=== PATIENT | female | born 1970 | race African-American/Black ===

== ENCOUNTER 2017-05-28 15:19 | Emergency (ER) | payer MEDICAID ==
[~2017-05-28] VITALS: Ht 165.1 cm; Wt 84.0 kg
[2017-05-28] MEDS ORDERED: HYDR25TA PO (15:35)
[2017-05-29] MEDS ORDERED: CEFTRIAXONE SODIUM 250 MG/VIAL IM ONE
[2017-05-29] MEDS ORDERED: AZITHROMYCIN 500 MG TABLET PO ONE
[2017-05-29 00:26] LABS: BASOPHILS % 0.7 % (0.0-2.0); EOSINOPHILS % 1.6 % (0.0-5.0); HEMATOCRIT. 37.2 % (36.0-48.0); HEMOGLOBIN. 12.3 g/dL (12.0-16.0); MEAN CORPUSCULAR HEMOGLOBIN 27.6 pg (28.0-32.0); MEAN CORPUSCULAR VOLUME 83.7 fL (81.0-99.0); MEAN PLATELET VOLUME 8.6 fl (7.4-10.4); MONOCYTES % 7.2 % (2.0-8.0); NEUTROPHILS % 69.5 % (40.0-76.0); PLATELET 246 x1000/uL (130-400); RED BLOOD CELL COUNT 4.45 mill/uL (4.2-5.4); RED CELL DISTRIBUTION WIDTH 16.1 % (11.6-14.6)
[2017-05-29 00:32] LABS: PROTHROMBIN TIME 10.3 sec (9.4-11.6)
[2017-05-29] MEDS ORDERED: KETOROLAC 30MG/ML VIAL IM ONE (01:15)
[2017-05-29 01:30] LABS: CLARITY URINE CLOUDY (CLEAR); COLOR URINE YELLOW (YELLOW); GLUCOSE URINE NEGATIVE (NEGATIVE); KETONES URINE NEGATIVE (NEGATIVE); LEUKOCYTE ESTERASE URINE 2+ (NEGATIVE); NITRITE URINE NEGATIVE (NEGATIVE); OCCULT BLOOD URINE 1+ (NEGATIVE); PH URINE 5.5 (4.5-8.0); PROTEIN URINE TRACE (NEGATIVE); SPECIFIC GRAVITY URINE 1.026 (1.005-1.030); UROBILINOGEN URINE 0.2 E.U./dL (0.2-1.0)
[2017-05-29 01:33] LABS: UCG SCREEN NEGATIVE
[2017-05-29] MEDS ORDERED: LIDOCAINE HCL 1% 20ML VIAL (Pyxis) INJ INFIL ONE (01:45)
[2017-05-29 04:00] VITALS: BP 113/68
[2017-05-31 04:17] LABS: CHLAMYDIA TRACHOMATIS NAA Negative (Negative); NEISSERIA GONORRHOEAE NAA Negative (Negative)
== END 2017-05-29 04:15 | disposition home or self-care (01) ==
LOC: ER 21:50
DX: T74.21XA Adult sexual abuse, confirmed, initial encounter (principal); N39.0 Urinary tract infection, site not specified; I10 Essential (primary) hypertension; K50.90 Crohn's disease, unspecified, without complications; F17.200 Nicotine dependence, unspecified, uncomplicated
CPT/HCPCS: 36415; 81001; 81025; 85025; 85610; 87491; 87591; 96372; 99284; J0696; J1885; J3490

== ENCOUNTER 2020-11-11 00:30 | Emergency (ER) | payer MEDICAID, OTHER ==
[~2020-11-11] VITALS: Ht 172.7 cm; Wt 118.0 kg
[~2020-11-11 00:30] MED LIST: HYDR25TA PO
[2020-11-11] MEDS ORDERED: ACETAMINOPHEN 325MG TABLET PO ONE (02:45)
[2020-11-11] MEDS ORDERED: KETOROLAC 30MG/ML VIAL IM ONE (04:45)
[2020-11-11] MEDS ORDERED: IBUP-2029 MT (11:05)
[2020-11-11 12:30] VITALS: BP 151/99
== END 2020-11-11 12:47 | disposition home or self-care (01) ==
LOC: ER 00:30
DX: R51.9 Headache, unspecified (principal); M54.2 Cervicalgia; M54.89 Other dorsalgia; G89.11 Acute pain due to trauma; W18.2XXA Fall in (into) shower or empty bathtub, initial encounter; Y93.E1 Activity, personal bathing and showering; Y92.031 Bathroom in apartment as the place of occurrence of the external cause
CPT/HCPCS: 70450; 72141; 72146; 72148; 93005; 96372; 99285; J1885